=== PATIENT | female | born 1995 | race Hispanic/Latino ===

== ENCOUNTER 2019-07-05 15:00 | Emergency (ER) | payer OTHER, SELFPAY ==
[2019-07-05 15:04] VITALS: BP 117/79; PULSE 96; RESP 16; TEMP 36.9; O2SAT 98; BMI 26.4
[2019-07-05 15:31] LABS: Bacteria Urine None Seen
[2019-07-05 15:44] LABS: Culture Indicated Urine Cult Not Indicated; RBC Urine 0-1/HPF (0-5/HPF); Squamous Epithelial Cell Urine 0-1 /HPF (0-5/HPF); WBC Urine 1-5/HPF (0-5/HPF)
[2019-07-05 17:51] LABS: Urine N gonorrhoeae NOT DETECTED
[2019-07-05 18:11] LABS: Urine Chlamydia NOT DETECTED
[2019-07-05] MEDS: KETOROLAC 60 MG/2 ML VIAL IM (18:12)
[2019-07-05] MEDS: DOXYCYCLINE HYCLATE 100 MG TABLET PO (18:31)
--- NOTE | 2019-07-05 18:45 | ED_ITS ---
HPI - Female Genitourinary <RAQUEL Barahona - Last Filed: 07/05/19 19:43> General Chief complaint: Urogenital-Female Stated complaint: villatoro to pee Time Seen by Provider: 07/05/19 15:28 Source: patient Mode of arrival: ambulatory Limitations: no limitations History of Present Illness HPI Narrative: The patient is a 24-year-old female nonsmoker presents with boyfriend for chief complaint of dysuria. She has a history of UTIs states that this feels similar. She states that she has had dysuria urgency or frequency for the past 3 days. She also complains of some lose vaginal discharge. She has not think she is susceptible note any sexual transmitted infections, but states that her boyfriend recently returned from deployment so she has not early positive. She denies any fevers flank pain abdominal pain chest pain shortness of breath cough or congestion. She denies any general rash or swelling. Related Data Home Medications Medication Instructions Recorded Confirmed hydrocodone-acetaminophen [Vicodin] #0 02/16/18 Previous Rx's Medication Instructions Recorded fluconazole [Diflucan] 150 mg PO QDAY #2 tab 02/16/18 nitrofurantoin monohyd/m-cryst 100 mg PO BID #14 cap 02/16/18 [Macrobid] phenazopyridine [Pyridium] 200 mg PO TID #2 tab 02/16/18 doxycycline hyclate 100 mg PO BID #20 cap 07/05/19 Allergies Allergy/AdvReac Type Severity Reaction Status Date / Time No Known Drug Allergies Allergy Verified 07/05/19 17:53 Review of Systems <RAQUEL Barahona - Last Filed: 07/05/19 19:43> Review of Systems GENERAL: Denies chills, fatigue, malaise, fever, sweats. HEENT: Denies sinus pain, ear pain, sore throat, difficulty swallowing, dizziness. RESPIRATORY: Denies dyspnea, cough, wheezing, hemoptysis, sputum. CARDIOVASCULAR: Denies chest pain, palpitations, orthopnea, edema, GASTROINTESTINAL: Denies nausea, vomiting, abdominal pain, diarrhea, constipation, melena. : See HPI MUSCULOSKELETAL: denies weakness, joint pain, or bony pain SKIN: Denies rash, skin lesions, or other NEUROLOGIC: Denies weakness, headache, numbness, change in speech, confusion, seizures, incoordination. PSYCHIATRIC: No concerning psychosocial issues. 12 point review of systems is negative except for those stated above PFSH <RAQUEL Barahona - Last Filed: 07/05/19 19:43> Medical History (Updated 07/05/19 @ 18:44 by RAQUEL Barahona) History of UTI (Acute) Social History Smoking Status: Never smoker Social History Smoking Status: Never smoker Exam <RAQUEL Barahona - Last Filed: 07/05/19 19:43> Narrative Exam Narrative: GENERAL: This is a well-nourished, well-developed patient no acute distress HEAD: Atraumatic. Normocephalic. No temporal or scalp tenderness. EYES: Pupils equal round and reactive. Extraocular motions intact. No scleral icterus. No injection or drainage. ENT: Nose without bleeding, purulent drainage or septal hematoma. Throat without erythema, tonsillar hypertrophy or exudate. Uvula midline. Airway patent. NECK: Trachea midline. No JVD or lymphadenopathy. Supple, nontender, no meningeal signs. CARDIOVASCULAR: Regular rate and rhythm RESPIRATORY: No cough. No increased respiratory effort. No accessory muscle use. GASTROINTESTINAL: Abdomen soft, non-tender, nondistended. No hepato- splenomegaly, or palpable masses. No guarding. EXTREMITIES: No clubbing, cyanosis, or edema. No joint tenderness, effusion, or edema noted. BACK: Nontender without deformity or crepitance. No flank tenderness. NEURO: AOx3. SKIN: No rash or erythema. : No genital rashes or erythema noted. No obvious vaginal discharge. Cervical motion tenderness on bimanual exam. Pelvic exam done with Winter HORAN at bedside Initial Vital Signs Initial Vital Signs: Vital Signs Temperature 98.5 F 07/05/19 15:04 Pulse Rate 96 H 07/05/19 15:04 Respiratory Rate 16 07/05/19 15:04 Blood Pressure 117/79 07/05/19 15:04 Pulse Oximetry 98 07/05/19 15:04 <Lana Hudson DO - Last Filed: 07/06/19 07:42> Initial Vital Signs Initial Vital Signs: Vital Signs Temperature 98.5 F 07/05/19 15:04 Pulse Rate 96 H 07/05/19 15:04 Respiratory Rate 16 07/05/19 15:04 Blood Pressure 117/79 07/05/19 15:04 Pulse Oximetry 98 07/05/19 15:04 Course <RAQUEL Barahona - Last Filed: 07/05/19 19:43> Orders Ordered: Discontinued Medications Ceftriaxone Sodium (Rocephin) 250 mg IM NOW ONE Stop: 07/05/19 18:24 Last Admin: 07/05/19 18:58 Dose: 250 mg Doxycycline Hyclate (Vibramycin) 100 mg PO NOW ONE Stop: 07/05/19 18:24 Last Admin: 07/05/19 18:31 Dose: 100 mg Ketorolac Tromethamine (Toradol) 60 mg IM NOW ONE Stop: 07/05/19 17:50 Last Admin: 07/05/19 18:12 Dose: 60 mg Vital Signs - 8 hr 07/05/19 15:04 07/05/19 19:25 Temperature 98.5 F Pulse Rate 96 H 69 Respiratory Rate 16 14 Blood Pressure 117/79 113/89 Pulse Oximetry 98 97 <Lana Hudson DO - Last Filed: 07/06/19 07:42> Orders Ordered: Discontinued Medications Ceftriaxone Sodium (Rocephin) 250 mg IM NOW ONE Stop: 07/05/19 18:24 Last Admin: 07/05/19 18:58 Dose: 250 mg Doxycycline Hyclate (Vibramycin) 100 mg PO NOW ONE Stop: 07/05/19 18:24 Last Admin: 07/05/19 18:31 Dose: 100 mg Ketorolac Tromethamine (Toradol) 60 mg IM NOW ONE Stop: 07/05/19 17:50 Last Admin: 07/05/19 18:12 Dose: 60 mg Vital Signs - 8 hr 07/05/19 15:04 07/05/19 19:25 Temperature 98.5 F Pulse Rate 96 H 69 Respiratory Rate 16 14 Blood Pressure 117/79 113/89 Pulse Oximetry 98 97 MDM - Female Genitourinary <RAQUEL Barahona - Last Filed: 07/05/19 19:43> Lab Data Lab Results 07/05/19 07/05/19 Range/Units 15:30 16:21 Urine RBC 0-1/hpf (0-5/HPF) Urine WBC 1-5/hpf (0-5/HPF) Ur Squamous Epith Cells 0-1 /hpf (0-5/HPF) Urine Bacteria None seen (None) Ur Culture Indicated? Cult not indicated Ur Chlamydia DNA (PCR) Not detected N gonorrhoeae DNA (PCR) Not detected Point of Care Testing Test Results Negative Urine Dip Bedside Urine Glucose Negative Bedside Urine Bilirubin - Negative Bedside Urine Ketone +/- 5 Urine Specific [place] 1.010 Bedside Urine Occult Blood +/- Bedside Urine pH 0 Bedside Urine Protein - Negative Bedside Urine Urobilinogen - Negative Bedside Urine Nitrite - Negative Bedside Urine Leukocytes - Negative Esterase MDM Narrative Medical decision making narrative: The patient is a 24-year-old female presents with a chief complaint of dysuria. Her POC is negative, her urinalysis does not indicate infection. However she does have cervical motion tenderness on pelvic exam, so we elected to treat for pelvic inflammatory disease at this point time. Genital culture is pending at this time. She tested negative for gonorrhea, chlamydia and had a normal wet prep. Encouraged follow-up with PCP. Discussed come back to the ER for any acute concerns such as a may keep down fluids. No questions or concerns upon discharge. <Lana Hudson, - Last Filed: 07/06/19 07:42> Lab Data Lab Results 07/05/19 07/05/19 Range/Units 15:30 16:21 Urine RBC 0-1/hpf (0-5/HPF) Urine WBC 1-5/hpf (0-5/HPF) Ur Squamous Epith Cells 0-1 /hpf (0-5/HPF) Urine Bacteria None seen (None) Ur Culture Indicated? Cult not indicated Ur Chlamydia DNA (PCR) Not detected N gonorrhoeae DNA (PCR) Not detected Point of Care Testing Test Results Negative Urine Dip Bedside Urine Glucose Negative Bedside Urine Bilirubin - Negative Bedside Urine Ketone +/- 5 Urine Specific [place] 1.010 Bedside Urine Occult Blood +/- Bedside Urine pH 0 Bedside Urine Protein - Negative Bedside Urine Urobilinogen - Negative Bedside Urine Nitrite - Negative Bedside Urine Leukocytes - Negative Esterase Discharge Plan Departure Patient Disposition: Home Clinical Impression: Acute pelvic inflammatory disease Discharge Date/Time: 07/05/19 19:20 Interventions: ED Discharge Assessment Last Done: 07/05/19 19:25 Instructions: DI for Pelvic Inflammatory Disease Activity Restrictions/Additional Instructions: We have elected to treat for PID at this point time. I have given you a prescription of an antibiotic. Be aware that this can make you very sensitive with some. Please follow up with primary care provider. Please come back to the emergency department for any acute concerns such as inability keep down fluids. Prescriptions: New doxycycline hyclate 100 mg capsule 100 mg PO BID Qty: 20 RF: 0 No Action hydrocodone-acetaminophen [Vicodin] 5 MG/300 MG tablet Qty: 0 RF: 0 fluconazole [Diflucan] 150 MG tablet 150 mg PO QDAY Qty: 2 RF: 0 phenazopyridine [Pyridium] 200 MG tablet 200 mg PO TID Qty: 2 RF: 0 nitrofurantoin monohyd/m-cryst [Macrobid] 100 MG capsule 100 mg PO BID Qty: 14 RF: 0 Referrals: [facility] [Provider Group] <Lana Hudson DO - Last Filed: 07/06/19 07:42> [facility] ED Attending Jeanine Attestation: I was immediately available in the department for consultation. Documentation has been reviewed. I agree with assessment and plan.
[2019-07-05] MEDS: cefTRIAXone 500 MG VIAL 250 MG IM (18:58)
[2019-07-05 19:25] VITALS: BP 113/89; PULSE 69; RESP 14; O2SAT 97
== END 2019-07-05 19:20 | disposition home or self-care (01) ==
PROVIDERS: Emergency Medicine; Emergency Provider Nurse Practitioner Family
DX: N73.0 Acute parametritis and pelvic cellulitis (principal)
CPT/HCPCS: 81003; 81015; 81025; 87070; 87205; 87210; 87220; 87491; 87591; 96372; 99282; 99283; J0696; J1885